=== PATIENT | female | born 1960 | race Caucasian/White ===

== ENCOUNTER 2020-02-11 06:45 | Day surgery (SDC) | payer BC ==
[~2020-02-11] VITALS: Ht 157.5 cm; Wt 72.6 kg
[~2020-02-11 06:45] MED LIST: ALPRAZOLAM0.5 MG PO; AMOX TR-K CLV1 EAC1 PO; FLUTICASONE PRO16 GM NAS; PREDNISONE20 MG PO; PSEUDOEPHEDRINE30 MG PO; RIZATRIPTAN10 M1 PO; TRAMADOL HCL50 MG PO; ZYRTEC10 M3 PO
[2020-02-11] MEDS ORDERED: AMBIEN5 MG PO (07:31)
--- NOTE | 2020-02-11 11:07 | NUR ---
PT IS BACK FROM RADIOLOGY AND NUCLEAR MED. SHE IS HOOKED BACK UP TO IV FLUIDS. SHE IS REPORTING A MIGRAINE. OR CHARGE IS LOOKING TO GET HER SOMETHING FOR THIS. ALL LIGHTS ARE TURNED OUT AND SHE IS MADE COMFORTABLE.
--- NOTE | 2020-02-11 13:45 | NUR ---
02/11/20 1345 Orin Quezada 1328 PT ARRIVED TO PACU ON 2L VIA NC, VSS. PT REPORTS PAIN AND STARTS GRIMACING. FLOWER ARRANGER AT BEDSIDE AND PAIN MEDICATION GIVEN. RESP EVEN AND UNLABORED. 1340 PT REPORTS NO CHANGE IN PAIN, 02/26. PAIN MEDICATION GIVEN. O2 SAT LOW 90S. RN CONTINUES TO ENCOURAGE DEEP BREATHING.
[2020-02-11] MEDS ORDERED: OXYCONTIN10 MG PO (13:52)
[2020-02-11] MEDS ORDERED: MOTRIN IB200 M1 PO (13:52)
--- NOTE | 2020-02-11 14:38 | NUR ---
PT IS BACK TO FROM PACU. SHE IS TOLERATING APPLE SAUCE AND ICE CHIPS. SHE IS GIVEN ICE WATER. CALL LIGHT WITHIN REACH. SHE IS REPORTING PAIN 8/10. SHE WOULD LIKE SOMETHING FOR PAIN. NO ADDITIONAL NEEDS AT THIS TIME.
--- NOTE | 2020-02-11 15:42 | NUR ---
PT STATES PAIN IS IMPROVING, HOWEVER RATES AT 7/10. PT'S BRA WAS PUT BACK ON THE SUPPORT HELPS WITH THE PAIN. PT STATES "NO DESIRE TO EAT" . CALL LIGHT WITHIN REACH AND WATER, ICE CHIPS, AND APPLESAUCE ARE ON BEDSIDE TABLE. RN WILL CONTINUE TO MONITOR.
--- NOTE | 2020-02-11 16:44 | NUR ---
VERBAL AND WRITTEN DISCHARGE INSTRUCTIONS WERE GIVEN AND PT VERBALIZED UNDERSTANDING OF INSTRUCTIONS. PT HAD NO FURTHER QUESTIONS ON DISCHARGE MATERIALS. PT WAS BROUGHT TO CAR VIA WHEELCHAIR AND WAS ABLE TO TRANSFER HERSELF TO CAR WITH NO ISSUES.
--- NOTE | 2020-02-12 08:25 | OR ---
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 POSTOPERATIVE DIAGNOSES: 1. 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 2. [place] lymph node negative on frozen pathology. PROCEDURE: 1. Injection of methylene blue for sentinel lymph node identification, left side. 2. Left deep axillary sentinel lymph node biopsy. 3. Left partial mastectomy with needle localized technique with excision of both neoplastic lesions. 4. Oncoplastic closure of defect site (mobilization and advancement of superior and inferior breast pedicles with closure of the defect). ANESTHESIA: General endotracheal; Ruma Reyes CRNA. INDICATION: This 59-year-old white woman is a patient of Pedro Del Real of [place], [place], and underwent mammography showing 2 lesions in the upper inner aspect of the breast. She was initially evaluated in [place] by mammography and subsequently in [place] from what I understand. Image-guided biopsy on the left was undertaken of 2 lesions, one was somewhat cystic in nature and the other more solid. 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 Close inspection of the pathology report confirms osteoclastic metaplastic changes (a negative prognostic factor). Both lesions are in the upper inner aspect of the left breast in the same quadrant. The patient has no family history of breast cancer and has had no prior breast biopsies or other problems in that regard. She is admitted at this time to undergo a left needle localized excisional biopsy of the 2 lesions of the upper inner aspect, one of them already palpable and the other nonpalpable as well as sentinel lymph node biopsy. We are anticipating postprocedure chemotherapy as well. The patient has been reviewed the various options of management and the particular unusual findings of her particular breast cancer problem and other options have been Electronically Signed By: JEFRY TERRY MD 02/12/20 0825 PATIENT NAME: GLENN GARCIA OPERATIVE REPORT DATE OF : 58 REPORT #: [id number] PHYSICIAN: JEFRY TERRY MD PCP: LINO DEL REAL NP REPORT IS CONFIDENTIAL AND NOT TO BE RELEASED WITHOUT AUTHORIZATION [facility] [address] [place] [address] Signed reviewed including mastectomy and so forth. Breast preservation is deemed a high value to her and breast conservation therapy approach has been well accepted. She understands the risks of bleeding, infection, cosmetic deformity, need for additional treatment including re-excision should margins be positive as well as anticipated plan for radiation therapy at minimum and chemotherapy depending on other factors. She understands and she wished to proceed. FINDINGS: The localizing wire was from the medial aspect of the left breast. The 2 lesions in question were well visualized on imaging and wide excision was undertaken excising both in continuity. Specimen radiograph confirmed both lesions were in the excised specimen. Oncoplastic closure was accomplished by mobilizing the superior and inferior pedicles from the pectoralis fascia and advancing them together and providing good coverage of the defect. As regard to the left axilla, methylene blue dye was essentially no uptake surprisingly, though there was 1 lymph node that was "hot" from radionuclide injection. The remaining axilla was completely devoid of any nuclear activity or any methylene blue uptake. Frozen pathology of the sentinel lymph node was negative. DESCRIPTION OF PROCEDURE: The patient was brought to the operating room after being received from radiology suite and given a general endotracheal anesthetic. A LMA type airway was not adequate and on that basis, endotracheal intubation was undertaken. Preoperative antibiotic Ancef was given, sequential compression device stockings were used, and heparin subcutaneously administered. I reviewed the imaging studies with the radiologist, so as to be certain to have wide excision of both lesions within the same quadrant. The breast and axillary area were prepared with a spray Betadine solution and draped sterilely. A C-Trak gamma probe device was used to interrogate the left axilla, showing avid uptake in the focal area. Not mentioned previously was the injection of 0.5 mL of methylene blue dye in the subepithelial space in the left periareolar margin. A transverse incision was made over the area of the left axilla with strong signal. Dissection was carried through the axillary fatty tissue with blunt electrocautery dissection. The probe was used to guide further dissection. I saw no evidence of methylene blue dye uptake in the lymphatics of the axilla. Palpation reveals a lymph node that was about 1.5 cm in size and corresponded to the "hot" findings on the gamma probe. This lymph node was dissected free and extracted and indeed was found to have high radioactive avidity. Again, there was no sign of methylene blue dye in the lymph node. This lymph node was marked with a suture and sent as lymph node #1. Further interrogation of the axilla showed no evidence of further radioactivity essentially nor any sign of methylene blue lymphatic Electronically Signed By: JEFRY TERRY MD 02/12/20 0825 PATIENT NAME: GLENN GARCIA OPERATIVE REPORT DATE OF : 58 REPORT #: [id number] PHYSICIAN: JEFRY TERRY MD PCP: LINO DEL REAL NP REPORT IS CONFIDENTIAL AND NOT TO BE RELEASED WITHOUT AUTHORIZATION [facility] [address] [facility] [place] [address] Signed uptake. The wound was then packed with gauze. Attention was turned towards the primary breast tumor. The wire emanating from the medial aspect of the left superior breast and a palpable abnormality also separate and distinct was noted. The most optimal incision was a transverse wound in the medial superior aspect. An incision was made and dissection was carried through the subcutaneous tissue with electrocautery. Blunt dissection allowed for identification of the localizing wire, which was delivered into the wound itself. Allis clamp was used to grasp the parenchyma and using electrocautery, a wide excision was undertaken following the needle to the depths of the breast. The palpable lesion which was somewhat superior to that was widely excised maintaining a clinically negative margin. Ultimately, the entire complex was excised, which included the wire, additional tissue around it obviously, and of course the palpable lesion with a clinically negative margin. It was sent for specimen radiograph. The resulting defect was rather large as might be expected. Primary approximation was surely resulted in a seroma and the usual problems associated with it. On that basis, an oculoplastic closure of the breast defect was deemed advisable. Allis clamps were applied to the fascial margin of the breast adjacent to the pectoralis. The inferior breast pedicle was then mobilized off the pectoralis quite readily. With similar technique, the superior pedicle was similarly freed from the underlying pectoralis fascia. The breast pedicle was then reapproximated with interrupted 2-0 Vicryl in layers. There was not too much of a crease at the level of the skin. The dermis was reapproximated similarly and skin closed with a running subcuticular 3-0 Vicryl. Steri-Strips were applied. By this point, the frozen pathology had identified the sentinel lymph node as negative for metastatic disease. This specimen radiographed, interpreted as having both lesions within the excised specimen. Notably, the specimen was oriented with a short stitch superior and long stitch laterally and a double stitch in the deep margins. Steri-Strips were applied to both wounds after closure as was a silver sponge dressing. The patient was ultimately extubated and transferred to the recovery room in good condition having suffered no complications. Sponge, needle, and counts were as correct x3. MD GEOFFREY Moeller/MODL Electronically Signed By: JEFRY TERRY MD 02/12/20 0825 PATIENT NAME: GLENN GARCIA OPERATIVE REPORT DATE OF : 58 REPORT #: [id number] PHYSICIAN: JEFRY TERRY MD PCP: LINO DEL REAL NP REPORT IS CONFIDENTIAL AND NOT TO BE RELEASED WITHOUT AUTHORIZATION [address] [address] Signed /[id number] cc: GAY Retana MD Copies: LINO DEL REAL NP, CYNTHIA SUE MD ~ Electronically Signed By: JEFRY TERRY MD 02/12/20 0825 PATIENT NAME: GLENN GARCIA OPERATIVE REPORT DATE OF : 58 REPORT #: [id number] PHYSICIAN: JEFRY TERRY MD PCP: LINO DEL REAL NP REPORT IS CONFIDENTIAL AND NOT TO BE RELEASED WITHOUT AUTHORIZATION
--- NOTE | 2020-02-17 15:24 | PATH ---
[facility] [address] [facility] [place] [address] Signed SPECIMEN(S): A SENTINEL LYMPH NODE SPECIMEN(S): B LEFT SUPERIOR MEDIAL BREAST SPECIMEN SOURCE: A. SENTINEL LYMPH NODE B. LEFT SUPERIOR MEDIAL BREAST CLINICAL HISTORY: Ductal CA left breast. FROZEN SECTION DIAGNOSIS: A. Suture friedman sentinel lymph node #1: - No evidence of malignancy. Queenie Coffman M.D. 12:56 PM, 02-11-20 Frozen section diagnoses called to Dr. Dill at 12:56 PM. FB (under the direct supervision of a pathologist) The Gross Description was prepared using a voice recognition system. The report was reviewed for accuracy; however, sound-alike word errors, addition and/or deletions may occur. If there is any question about this report, please contact Client Services. FINAL PATHOLOGIC DIAGNOSIS: A. [place] lymph node, left axilla, excisional biopsy: - One lymph node with no evidence of malignancy (0/1). - See comment. B. Breast, left, lumpectomy: - Metaplastic carcinoma with the following features: - Tumor size: 2.1 x 1.7 x 1.5 cm (largest focus). - Histologic type: Metaplastic carcinoma. - Histologic grade: Glandular (acinar)/tubular differentiation: Score 3. - Nuclear pleomorphism: Score 3. - Mitotic rate: Score 1. - Overall grade: Grade II/III (total score 7/9). - Tumor focality: Multiple foci of invasive carcinoma. - Number of foci: 3. - Sizes of individual foci: Focus 1: 21 x 17 x 15 mm; focus 2: 8 x 7 x 7 mm; focus 3: less than 1 mm. - Ductal carcinoma in situ (DCIS): Present, positive for extensive intraductal component. - Architectural pattern: Cribriform with comedo necrosis. PATIENT NAME: GLENN GARCIA PATHOLOGY DATE OF : 58 REPORT #: [id number] PHYSICIAN: VICKY PALENCIA PCP: LINO DEL REAL NP REPORT IS CONFIDENTIAL AND NOT TO BE RELEASED WITHOUT AUTHORIZATION [facility] [address] [place], [place] [address] Signed - Nuclear grade: Intermediate, grade 2. - Margins: - Invasive carcinoma margins: Uninvolved by invasive carcinoma. - Distance from closest margins: - Posterior: 1.5 mm. - Inferior: 6 mm. - Superior: 10 mm. - Anterior, medial, and lateral: Greater than 10 mm. - DCIS margins: Uninvolved by DCIS. - Distance from closest margins: - Posterior: 2 mm. - Inferior: 3 mm. - Superior: 9 mm. - Anterior, medial, and lateral: Greater than 10 mm. - Regional lymph nodes: Uninvolved by tumor cells. - Total number of lymph nodes examined: 1. - Number of sentinel lymph nodes examined: 1. - Treatment effect in the breast: No known pre-surgical therapy. - Lymphovascular invasion: Not identified. - Microcalcifications: Not identified. - Estrogen receptor, progesterone receptor, HER2 by IHC, and Ki-67 proliferating index: Please refer to studies previously performed ([id number], 01/09/2020) which were reported as ER negative, KS negative, HER2 by IHC negative (score 0), and Ki-67 proliferating index of 6%. - Biopsy site changes present. - Final Pathologic Stage Classification (pTNM, AJCC 8th ed): mpT2 (sn) pN0. COMMENT: The patient's most recent breast biopsy from ([id number]) was reviewed. The largest focus of metaplastic carcinoma present within the lumpectomy specimen corresponds to the carcinoma biopsied at the 10 o'clock position. The second largest focus of metaplastic carcinoma corresponds to the carcinoma biopsies at the 9 o'clock position. A third incidental focus of invasive ductal carcinoma is identified within the lumpectomy specimen. 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 The largest focus of invasive PATIENT NAME: GLENN GARCIA PATHOLOGY DATE OF : 58 REPORT #: [id number] PHYSICIAN: VICKY PALENCIA PCP: LINO DEL REAL NP REPORT IS CONFIDENTIAL AND NOT TO BE RELEASED WITHOUT AUTHORIZATION [address] [address] Signed carcinoma surrounds a cystic duct involved by DCIS. An immunohistochemical stain (with appropriately staining controls) for pancytokeratin (AE1/AE3) was performed on a automobile rental representative section of the sentinel lymph node and is negative, supporting the absence of metastatic carcinoma. Preliminary results were discussed with Dr. Dill on 02/13/2020. NAL:cml:C1NR MICROSCOPIC EXAMINATION: Histologic sections of all submitted blocks are examined by light microscopy. These findings, together with the gross examination, support the pathologic diagnosis. GROSS DESCRIPTION: Two specimens are received in two containers, labeled "Joshua Glenn." A. The specimen, labeled "Glenn Garcia," and designated on the requisition "suture friedman sentinel lymph node #1," is received fresh for frozen section diagnosis and consists of 1.0 x 0.5 x 0.5 cm suarez possible lymph node with attached yellow-suarez adipose tissue. The lymph node is bisected and half is submitted for frozen section resubmitted as received in cassette A1. The remainder of the lymph node is submitted in cassette A2. Only adipose tissue remains within the container. B. The specimen, labeled "Glenn Garcia," and designated on the requisition "left superior medial breast short stitch superior margin, long lateral, double is deep," is received in formalin and consists of 83 gram oriented portion of yellow-suarez fibroadipose tissue that is 7.8 x 6.7 x 4.2 cm and has an inserted metal localization wire. A short suture identifies the superior margin, a long suture identifies the lateral margin, and a double suture identifies the deep/posterior margin. The specimen is inked as follows: superior - blue; inferior - green; medial - red; lateral - orange; anterior - yellow; and posterior - black. The specimen is serially sectioned from medial to lateral into 11 slices revealing a 2.1 x 1.7 x 1.5 cm brown watery fluid-filled cystic cavity. The cystic cavity is present in slices 4-6, 2.2 cm from the anterior soft tissue margin, 0.6 cm from the posterior soft tissue margin, 0.9 cm from the superior soft tissue margin, 2.8 cm from the inferior soft tissue margin, 1.8 cm from the medial soft tissue margin, and 3.1 cm from the lateral soft tissue margin. The cystic cavities entirely submitted for PATIENT NAME: GLENN GARCIA PATHOLOGY DATE OF : 58 REPORT #: [id number] PHYSICIAN: VICKY PALENCIA PCP: LINO DEL REAL NP REPORT IS CONFIDENTIAL AND NOT TO BE RELEASED WITHOUT AUTHORIZATION [facility] [address] [place], [place] [address] Signed histologic examination. Present in slice four, 1.6 cm inferior to the previously described cystic cavity is a 0.8 x 0.7 x 0.7 cm white firm, well-circumscribed nodule that is 1.7 cm from the anterior soft tissue resection margin, 2.2 cm from the posterior soft tissue resection margin, 3.4 cm from the superior soft tissue resection margin, 0.7 cm from the inferior soft tissue resection margin, 2.5 cm from the medial soft tissue resection margin, and 4.1 cm from the lateral soft tissue resection margin. Slices five, six and seven display an area of nodular pink fibrous tissue that is ill-defined and measures 2.2 x 2.0 x 1.0 cm, is 1.2 cm from the inferior soft tissue resection margin, and 1.4 cm from the anterior soft tissue resection margin. This fibrous tissue is contiguous with the previously described nodule in slice four. Interventional Technologist sections are submitted in 13 cassettes. Cassette summary: (B1-B5) cystic cavity with closest posterior and superior soft tissue resection margins, perpendicular (B6) fibroadipose tissue between cystic cavity and nodule (B7) nodule to closest inferior soft tissue margin, perpendicular (B8) nodular fibrous tissue, slice five to closest inferior soft tissue resection margin, perpendicular (B9) nodular fibrous tissue, slice six to closest inferior soft tissue resection margin, perpendicular (B10) nodular fibrous tissue, slice seven to closest inferior soft tissue resection margin, perpendicular (B11) anterior soft tissue resection margin, perpendicular (B12) medial soft tissue margin, perpendicular (B13) lateral soft tissue margin, perpendicular. Cold ischemia time: 27 minutes Approximate Formalin time: 23 hours. The inferior margin on slices 3-4 are submitted for histologic examination per Dr. Coffman's request in cassettes. ADDITIONAL NOTES: Immunohistochemical and/or in situ hybridization studies were performed on this case with the appropriate positive controls that react as expected. This test was developed and its performance characteristics determined by [facility]. It has not been cleared or approved by the U.S. Food and Drug Administration. The FDA has determined that PATIENT NAME: GLENN GARCIA PATHOLOGY DATE OF : 58 REPORT #: [id number] PHYSICIAN: VICKY PALENCIA PCP: LINO DEL REAL NP REPORT IS CONFIDENTIAL AND NOT TO BE RELEASED WITHOUT AUTHORIZATION [facility] [address] [place], [place] [address] Signed such clearance or approval is not necessary. This test is used for clinical purposes. It should not be regarded as investigational or for research. [facility] is certified under the Clinical Laboratory Improvement Amendments of 1988 (CLIA) as qualified to perform high complexity clinical laboratory testing. PERFORMING LABORATORY: The frozen section was performed by [facility], [address] [facility] [address] [address] (CLIA# [id number]). The technical component was performed by [facility], [address] [place] [id number] (Assistant Professor Of History: Deanna Lee MD; CLIA# [id number]). Professional interpretation was performed by [facility], [facility], [address] [place] [id number] (CLIA# [id number]). Diagnostician: Queenie Coffman MD Pathologist Diagnostician: Dillon Hodges MD Pathologist Electronically Signed 02/17/2020 Copies: ~ PATIENT NAME: GLENN GARCIA PATHOLOGY DATE OF : 58 REPORT #: [id number] PHYSICIAN: VICKY PALENCIA PCP: LINO DEL REAL NP REPORT IS CONFIDENTIAL AND NOT TO BE RELEASED WITHOUT AUTHORIZATION
== END 2020-02-11 16:30 | disposition home or self-care (01) ==
LOC: OPS 06:45 → DS 06:45 → EDSTATUS 08:00 → OPS 08:00 → US 08:00 → OPS 16:30
PROVIDERS: Surgery
PROC: 0HBU0ZZ Excision of Left Breast, Open Approach (ICD-10-PCS; principal; 2020-02-11 08:45)
PROC: 07B60ZX Excision of Left Axillary Lymphatic, Open Approach, Diagnostic (ICD-10-PCS; 2020-02-11 08:45)
DX: C50.212 Malignant neoplasm of upper-inner quadrant of left female breast (principal); G43.909 Migraine, unspecified, not intractable, without status migrainosus; Z17.1 Estrogen receptor negative status [ER-]; Z88.5 Allergy status to narcotic agent; Z79.899 Other long term (current) drug therapy; Z87.891 Personal history of nicotine dependence
CPT/HCPCS: 00404; 76098; 76942; 77065; 78195; A9541; J0330; J0595; J0690; J1100; J1644; J1885; J2001; J2250; J2405; J2704; J3010; J7121; Q9968

== ENCOUNTER 2024-02-28 21:11 | Emergency (ER) | payer OTHER, MEDICARE ==
[~2024-02-28] VITALS: Ht 157.5 cm; Wt 68.0 kg
[~2024-02-28 21:11] MED LIST changes: +AMBIEN5 MG PO; +DEXAMETHASONE4 MG PO; +LORAZEPAM1 MG PO; +MOTRIN IB200 M1 PO; +ONDANSETRON ODT8 MG PO; +OXYCONTIN10 MG PO; +PEPCID40 MG PO; +VISTARIL25 MG PO
[2024-02-28 21:27] LABS: BASOPHILS 0.8 % (0-2); EOSINOPHILS 1.7 % (0-6); HEMATOCRIT 40.8 % (35.0-50.0); HEMOGLOBIN 13.5 g/dL (12.0-18.0); LYMPHOCYTES 44.2 % (24-44); MCH 29.8 (27-36); MCHC 33.1 g/dl (30-36); MONOCYTES 7.5 % (0-12); NEUTROPHILS 45.8 % (39-80); PLATELET COUNT 264 K/uL (140-440); RBC 4.54 M/ul (4.3-5.7)
[2024-02-28] MEDS ORDERED: ondansetron HCL 4 MG/2 ML VIAL IV ONE (21:30)
[2024-02-28] MEDS ORDERED: DIPHTH,PERTUSS(ACELL),TET VAC 0.5 ML SYRINGE IM ONE (21:30)
[2024-02-28] MEDS ORDERED: LACTATED RINGER'S 1,000 ML IV ONE (21:30)
[2024-02-28] MEDS ORDERED: fentaNYL citrate 100 MCG/2 ML VIAL IV ONE (21:30)
[2024-02-28 21:43] LABS: ALBUMIN 3.3 g/dL (3.4-5.0); ALBUMIN/GLOBULIN RATIO 0.92 (1.1-2.4); ALCOHOL, MEDICAL <3 ng/dL (<3); ALKALINE PHOSPHATASE 100 U/L (46-116); ALT (SGPT) 21 U/L (14-59); ANION GAP 14.6 (7-21); AST (SGOT) 21 U/L (15-37); BILIRUBIN, TOTAL 0.7 ng/dL (0.2-1.0); BUN/CREATININE RATIO 6.79 (6.0-28.6); CALCIUM 8.9 mg/dL (8.5-10.1); CARBON DIOXIDE 24 mmol/L (21-32); CHLORIDE 104 mmol/L (98-107); CREATININE, SERUM 1.03 mg/dL (0.55-1.02); GLOMERULAR FILTRATION RATE,EST 60 mL/min (>60); POTASSIUM 3.6 mmol/L (3.5-5.1); PROTEIN, TOTAL 6.9 g/dL (6.4-8.2); UREA NITROGEN 7 mg/dL (7-18)
[2024-02-28 21:59] LABS: ABO O; ANTIBODY SCREEN NEGATIVE; RH POSITIVE
[2024-02-28] MEDS ORDERED: ZOLPIDEM TART12.5 MG PO (22:07)
[2024-02-28] MEDS ORDERED: FLUOXETINE HCL20 MG PO (22:07)
[2024-02-28] MEDS ORDERED: ONDANSETRON ODT8 MG PO (23:14)
[2024-02-28] MEDS ORDERED: OXYCODONE HCL5 MG PO (23:14)
[2024-02-28 23:30] VITALS: BP 125/58
[2024-02-28] MEDS ORDERED: HYDROmorphone HCL 2 MG HOME.PACK PO ONE (23:30)
[2024-02-28] MEDS ORDERED: ONDANSETRON 4 MG HOME.PACK SL ONE (23:30)
--- NOTE | 2024-02-29 20:34 | EKG ---
[facility] [address] [facility] [place] [address] Signed Sinus bradycardia Otherwise normal ECG No previous ECGs available Confirmed by Angel Charles MD () on 02/29/2024 8:33:54 PM Electronically Signed By: ANGEL CHARLES MD 02/29/242033 PATIENT NAME: GLENN GARCIA Electrocardiogram DATE OF : 58 PHYSICIAN: ANGEL CHARLES MD REPORT #: [id number] REPORT IS CONFIDENTIAL AND NOT TO BE RELEASED WITHOUT AUTHORIZATION
== END 2024-02-28 23:49 | disposition home or self-care (01) ==
LOC: ED 21:11
PROVIDERS: Family Medicine
DX: S22.20XA Unspecified fracture of sternum, initial encounter for closed fracture (principal); S16.1XXA Strain of muscle, fascia and tendon at neck level, initial encounter; V43.52XA Car driver injured in collision with other type car in traffic accident, initial encounter; G43.909 Migraine, unspecified, not intractable, without status migrainosus; Z87.891 Personal history of nicotine dependence; Z88.6 Allergy status to analgesic agent; Z88.5 Allergy status to narcotic agent; Z79.899 Other long term (current) drug therapy
CPT/HCPCS: 70450; 70486; 71260; 72125; 73060; 73090; 80053; 84484; 85025; 86850; 86900; 86901; 93005; 93010; 99285-25; A9270; G0480; J2405; J3010; J7121